=== PATIENT | male | born 1955 | race Caucasian/White ===

== ENCOUNTER 2023-03-24 09:34 | Emergency (ER) | payer OTHER ==
--- NOTE | 2023-03-24 10:34 | ED Physician Documentation ---
PD HPI BACK PAIN - Stated complaint Stated Complaint: BODY TREMORS - Chief complaint Chief Complaint: Neuro - History obtained from History obtained from: Patient, Family (spouse) - History of Present Illness Timing - onset: How many days ago (few days of worsening degree of tremors. Has had it intermittently since 2019, and associated more tih pain exacerbations, anxiety, poor sleep. Has not been to PMD about it per se. He/ are visiting [facility] and here 2 more days before return home. Tremor today significant enough to affect eating.) Timing - details: Gradual onset, Still present (worse the past couple days to affect holding utensils and glasses, walking, etc.), Waxing and waning Location: Lower (chronic lower back pain is flared above baseline the past few days.) Quality: Pain Associated symptoms: Other (whole body tremors/spasms intermittently.). No: Weakness, Numbness Worsened by: Movement Similar symptoms before: Diagnosis (history of back pain due to discs. No recent new injury. No numbness/weakenss/incontinence. Main issue to ED today is the tremoring that he gets at times, worse. Has been treated with Ativan on other occasions seen in ER.) Recently seen: Not recently seen (no recent new medications.) Review of Systems Constitutional: denies: Fever, Chills Nose: denies: Rhinorrhea / runny nose, Congestion Throat: denies: Sore throat Respiratory: denies: Cough Skin: denies: Rash, Lesions Musculoskeletal: reports: Back pain. denies: Neck pain Neurologic: denies: Focal weakness, Numbness, Headache PD PAST MEDICAL HISTORY - Past Medical History Cardiovascular: None Respiratory: None Musculoskeletal: Chronic back pain Derm: None - Present Medications Home Medications: Ambulatory Orders Medication Instructions Recorded Confirmed Gabapentin [Neurontin] 100 mg PO DAILY PRN 03/24/23 03/24/23 LORazepam [Ativan] 1 mg PO BID PRN #12 tablet 03/24/23 Rosuvastatin Calcium [Crestor] 10 mg PO DAILY 03/24/23 03/24/23 tiZANidine [Zanaflex] 4 mg PO Q8H PRN #25 tablet 03/24/23 - Allergies Allergies/Adverse Reactions: Allergies Allergy/AdvReac Type Severity Reaction Status Date / Time No Known Drug Allergies Allergy Verified 03/24/23 09:54 PD ED PE NORMAL - Vitals Vital signs reviewed: Yes - General General: Alert and oriented X 3, Well developed/nourished - Neck Neck: Supple, no meningeal sign, No adenopathy - Cardiac Cardiac: RRR, No murmur - Respiratory Respiratory: Clear bilaterally - Abdomen Abdomen: Soft, Non tender - Derm Derm: Normal color, Warm and dry - Neuro Neuro: Alert and oriented X 3, No motor deficit, No sensory deficit, Normal speech, Other (frequent diffuse nonrhythmic spasms/twitches whole body at times, including abd muscles. No apparent effect on neck muscles (no voice changes or trouble swallowing). Does have head lurch back at times. Lessens as I have him hold my hands but not all gone. Mild resting tremor noted in lifted hands.) Eye Opening: Spontaneous Motor: Obeys Commands Verbal: Oriented GCS Score: 15 Results - Vitals Vitals: Vital Signs - 24 hr 03/24/23 14:08 Heart Rate 68 Respiratory 15 Rate Blood Pressure 118/72 O2 Saturation 99 Oxygen O2 Source Room air - Labs Labs: Laboratory Tests 03/24/23 03/24/23 11:08 11:08 WBC 5.4 RBC 4.79 Hgb 14.6 Hct 44.6 MCV 93.1 MCH 30.5 MCHC 32.7 RDW 13.3 Plt Count 189 MPV 9.9 Neut # (Auto) 3.5 Lymph # (Auto) 1.2 L [place] # (Auto) 0.7 Eos # (Auto) 0.0 Baso # (Auto) 0.0 Absolute Nucleated RBC 0.00 Nucleated RBC % 0.0 Sodium 138 Potassium 4.0 Chloride 105 Carbon Dioxide 32 Anion Gap 1.0 L BUN 18 Creatinine 1.2 Estimated GFR (MDRD) 60 L Glucose 97 Calcium 9.8 Magnesium 1.9 Total Bilirubin 0.5 AST 21 ALT 37 Alkaline Phosphatase 48 Total Creatine Kinase 122 Total Protein 7.2 Albumin 4.4 Globulin 2.8 Albumin/Globulin Ratio 1.6 Lipase 74 Vitamin B12 384 PD Medical Decision Making - ED course Complexity details: re-evaluated patient (It does not seem seizure as whole body and he is awake conversant, plus he can move extremities and has purposeful movement). Does not have oscilating pattern like essential tremor, other tremors. Consider functional neurologic disorder. Presume Neuro consult useful through PMD back home.), considered differential (he is having nonrhythmic tremors/shaking throughout whole body, including trunk, but not all at same time. 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 Somewhat less with activity (not seeing it as he walks, but still occurring as he holds both my hands).), d/w patient ED course: no new meds. Has had this intermittently since 2019. Does not appear epileptic. No change in meds nor mentation changes to suggest serotonin syndrome or med side effect. I would think Neurology consult outpt would be good to eval for other possible tremor type conditions. It might end up in FND (functional neurologic disorder) category, but would want specialist eval. He did improve with Ativan here. I can give short term script for this, and also consider muscle relaxant as some muscle spasms component. They are on [place] just 2 more days then back home so not going to try any local follow up. Departure - Departure Disposition: Home, Self Care Clinical Impression: Shaking Condition: Stable Record reviewed to determine appropriate education?: Yes Prescriptions: LORazepam [Ativan] 1 mg PO BID PRN #12 tablet PRN Reason: Anxiety tiZANidine [Zanaflex] 4 mg PO Q8H PRN #25 tablet PRN Reason: Spasms Comments: Your basic blood tests of blood count, white count, electrolytes, kidney fu nction, blood sugar are normal. The muscle tremors/spasming that you are having does not look like seizure/epileptic. At this point I would suggest using a muscle relaxant tizanidine initially to he lp with the symptoms as needed. Add or use instead of the lorazepam if needed for persistent or worse spasms/tremors. Follow-up with your primary care for further evaluation. Consideration would be a neurology consultation to see if there is any other testing or diagnostic approach. The statin/cholesterol medications do have muscle spasms as a potential side effect listed. I would hold off on your statin medication until further discussion with your primary care. I sent your prescriptions to [facility]. Stay well-hydrated. Minimal caffeine. Avoid alcohol. Forms: PCP List Discharge Date/Time: 03/24/23 14:09
[2023-03-24] MEDS ORDERED: KETOROLAC 15 MG/ML VIAL IVP STA (10:56)
[2023-03-24] MEDS ORDERED: LORazepam 2 MG/ML VIAL IVP STA ×2 (10:56→12:26)
[2023-03-24] MEDS ORDERED: SODIUM CHLORIDE 0.9% 1,000 ML IV STA (10:56)
[2023-03-24 11:15] LABS: BASOPHILS % (AUTO) 0.6 %; HCT - HEMATOCRIT 44.6 % (42.0-52.0); HGB - HEMOGLOBIN 14.6 g/dL (14.0-18.0); LYMPHOCYTES # (AUTO) 1.2 10^3/uL (1.5-3.5); LYMPHOCYTES % (AUTO) 22.4 %; MEAN CORPUSCULAR HEMOGLOBIN 30.5 pg (27.0-31.0); MEAN CORPUSCULAR HGB CONC 32.7 g/dL (32.0-36.0); MEAN CORPUSCULAR VOLUME 93.1 fL (80.0-94.0); MEAN PLATELET VOLUME 9.9 fL (7.4-11.4); MONOCYTES # (AUTO) 0.7 10^3/uL (0.0-1.0); NEUTROPHILS # (AUTO) 3.5 10^3/uL (1.5-6.6); NEUTROPHILS % (AUTO) 64.8 %; PLT - PLATELET COUNT 189 10^3/uL (130-450); RED BLOOD COUNT 4.79 10^6/uL (4.70-6.10); RED CELL DISTRIBUTION WIDTH 13.3 % (12.0-15.0); WHITE BLOOD COUNT 5.4 x10^3/uL (4.8-10.8)
[2023-03-24 11:28] LABS: ALBUMIN 4.4 g/dL (3.2-5.5); ALBUMIN/GLOBULIN RATIO 1.6 (1.0-2.2); BILIRUBIN,TOTAL 0.5 mg/dL (0.2-1.0); CALCIUM 9.8 mg/dL (8.5-10.3); CREATININE 1.2 mg/dL (0.6-1.3); MAGNESIUM 1.9 mg/dL (1.7-2.3); TOTAL PROTEIN 7.2 g/dL (6.4-8.9)
[2023-03-24 14:12] VITALS: BP 118/72
== END 2023-03-24 14:09 | disposition home or self-care (01) ==
LOC: ED 09:34
DX: R25.1 Tremor, unspecified (principal)
CPT/HCPCS: 36415; 80053; 82550; 82607; 83690; 83735; 84425; 85025; 96374; 96375; 96376; 99283; 99284; J2060